=== PATIENT | female | born 1990 | race Caucasian/White ===

== ENCOUNTER 2017-03-24 11:15 | Emergency (ER) | payer BC ==
[2017-03-24 12:17] VITALS: BP 102/64
--- NOTE | 2017-03-24 12:36 | UC ---
Throat Pain/Nasal Efren HPI - HPI Summary HPI Summary: Patient has had sinus pressure, cough, and throat pain for the past 1-2 weeks - History of Current Complaint Chief Complaint: UCRespiratory Stated Complaint: COUGH & FEVER X 2 WEEKS Time Seen by Provider: 03/24/17 12:27 Hx Obtained From: Patient Hx Last Menstrual Period: n/a ?: No Onset/Duration: Sudden Onset Severity: Severe Cough: Nonproductive Associated Signs & Symptoms: Positive: Dysphagia, Sinus Discomfort, Fever - Allergies/Home Medications Allergies/Adverse Reactions: Allergies Allergy/AdvReac Type Severity Reaction Status Date / Time fiber glass Allergy Blisters Uncoded 03/24/17 12:17 Home Medications: Home Medications Acetaminophen [Eq Pain Reliever] 1,000 mg PO Q6H PRN 03/24/17 [History Confirmed 03/24/17] Day And Night Cold Severe 2 units PO SEE INSTRUCTIONS PRN 03/24/17 [History Confirmed 03/24/17] Ibuprofen-Diphenhydramine HCl [Ibuprofen Pm 200-25 mg] 1 cap PO BEDTIME [History Confirmed 03/24/17] Levonorgestrel (Iud) [Mirena IUD] 20 mcg IU DAILY 03/24/17 [History Confirmed ] PMH/Surg Hx/FS Hx/Imm Hx Previously Healthy: Yes - Surgical History Surgical History: Yes Surgery Procedure, Year, and Place: wisdom tooth, left bicep tumor - Family History Known Family History: Negative: Hypertension - Social History Alcohol Use: Occasionally Substance Use Type: None Smoking Status (MU): Current Some Day Smoker Review of Systems Constitutional: Fever, Fatigue Skin: Negative Eyes: Negative ENT: Sore Throat, Ear Ache, Nasal Discharge, Sinus Congestion Respiratory: Cough Cardiovascular: Negative Gastrointestinal: Negative Genitourinary: Negative Motor: Negative Neurovascular: Negative Musculoskeletal: Negative Neurological: Headache Psychological: Negative Is Patient Immunocompromised?: No All Other Systems Reviewed And Are Negative: Yes Physical Exam Triage Information Reviewed: Yes Appearance: Well-Nourished, Ill-Appearing, Pain Distress Vital Signs: Initial Vital Signs Temp 98.8 F 03/24/17 12:12 Pulse 80 03/24/17 12:12 Resp 18 03/24/17 12:12 BP 102/64 03/24/17 12:12 Pulse Ox 99 03/24/17 12:12 Vital Signs Reviewed: Yes Eye Exam: Normal ENT: Positive: Hearing grossly normal, Pharyngeal erythema, Nasal congestion, TM red Dental Exam: Normal Neck exam: Normal Neck: Positive: Supple, Nontender, No Lymphadenopathy Respiratory Exam: Normal Respiratory: Positive: Chest non-tender, Lungs clear, Normal breath sounds Cardiovascular Exam: Normal Cardiovascular: Positive: RRR, No Murmur, Pulses Normal Abdominal Exam: Normal Bowel Sounds: Positive: Present Musculoskeletal Exam: Normal Musculoskeletal: Positive: Strength Intact, ROM Intact, No Edema Neurological Exam: Normal Neurological: Positive: Alert, Muscle Tone Normal Psychological Exam: Normal Skin Exam: Normal Throat Pain/Nasal Course/Dx - Course Course Of Treatment: hx obtained, exam performed ,meds reviewed, treated for sinusitis - Differential Dx/Diagnosis Differential Diagnosis/HQI/PQRI: Otitis Media, Pharyngitis, Sinusitis, URI Provider Diagnoses: sinusitis Discharge - Discharge Plan Condition: Stable Disposition: HOME Prescriptions: Amoxicillin PO (*) [Amoxicillin 875 MG (*)] 875 mg PO BID #20 tab Patient Education Materials: Sinusitis (ED) Additional Instructions: 1, increase fluid intake and get plenty of rest 2. Take the antibioitc as prescribed. 3. Follow up with any worsening symptoms
== END 2017-03-24 12:53 | disposition home or self-care (01) ==
LOC: UCCORT 11:15
DX: J32.9 Chronic sinusitis, unspecified (principal); Z72.0 Tobacco use
CPT/HCPCS: 99202; G0463

== ENCOUNTER 2017-05-02 06:07 | Day surgery (SDC) | payer BC ==
[~2017-05-02 06:07] MED LIST: Buffered Lidocaine 0.9% SYRIN* 5 ML/SYR SYRINGE INTRADERM ONE; Ibuprofen TAB* 600 MG PO ONE; Metoclopramide TAB* 10 MG PO ONE; Sodium Citrate/Citric Acid* 15 ML UDC PO ONE
[2017-05-02] MEDS ORDERED: Metoclopramide TAB* 10 MG ONE (06:43)
[2017-05-02] MEDS ORDERED: Sodium Citrate/Citric Acid* 15 ML UDC ONE (06:43)
[2017-05-02] MEDS ORDERED: Buffered Lidocaine 0.9% SYRIN* 5 ML/SYR SYRINGE ONE (06:43)
[2017-05-02] MEDS ORDERED: ceFAZolin 2 GM PREMIX (*) 2 GM/50 ML BAG IVPB ONE (06:43)
[2017-05-02] MEDS ORDERED: Ketorolac INJ* 30 MG/ML 1 ML VIAL ONE (06:49)
[2017-05-02] MEDS ORDERED: Bupivacaine 0.25% SDV* 30 ML ONE (07:15)
[2017-05-02] MEDS ORDERED: Atracurium* 10 MG/ML 10 ML VIAL ONE (07:47)
[2017-05-02] MEDS ORDERED: fentaNYL* 50 MCG/ML 2 ML VIAL (100 MCG VIAL) ONE ×2 (07:47→08:20)
[2017-05-02] MEDS ORDERED: Dexamethasone IV* 4 MG/ML 1 ML (4 MG) ONE (07:48)
[2017-05-02] MEDS ORDERED: Ondansetron INJ* 2 MG/ML VIAL ONE (07:48)
[2017-05-02] MEDS ORDERED: Propofol* 10 MG/ML 20 ML BTL IV PUSH ONE (07:48)
[2017-05-02] MEDS ORDERED: Lidocaine 2% PF * 5 ML VIAL ONE (07:48)
[2017-05-02] MEDS ORDERED: Scopolamine 1.5 mg* PATCH ONE (07:48)
[2017-05-02] MEDS ORDERED: fentaNYL* 50 MCG/ML 2 ML VIAL (100 MCG VIAL) IV PRN (08:24)
[2017-05-02] MEDS ORDERED: DiMENhydriNATE IV* 50 MG/ML VIAL IV PUSH PRN (08:24)
[2017-05-02] MEDS ORDERED: oxyCODONE/Acetamin 5/325 MG* TAB PO PRN (08:24)
[2017-05-02] MEDS ORDERED: Atropine 1MG/ML INJ* 1 ML VIAL ONE (08:33)
[2017-05-02] MEDS ORDERED: Edrophonium Chloride* 10 MG/ML 15 ML VIAL ONE (08:36)
--- NOTE | 2017-05-02 08:43 | BRIEFOPN ---
Brief Operative Note - Surgery Procedures: Preop Dx: possible Spigelian hernia Postop Dx: normal diagnostic laparoscopy Procedure: diagnostic laparoscopy Anesthesia: GET Surgeon: Karolina Asst: LC aTlavera Fluids: 900 ml EBL: none Specimen: none Drains: none Findings: dictated
[2017-05-02] MEDS ORDERED: HYDROcodone/ACETAMIN 5-325 MG* 1 TAB ONE (09:29)
[2017-05-02 10:01] VITALS: BP 109/60
--- NOTE | 2017-05-02 13:41 | OP ---
CC: Dr. Carly Rios * DATE OF OPERATION: 05/02/17 - [facility] DATE OF : 89 SURGEON: Akira Turcios MD DISTRICT MEDICAL EXAMINER: LC Lott ANESTHESIOLOGIST: Dr. Alonzo ANESTHESIA: General anesthetic, local infiltration. PRE-OP DIAGNOSIS: Spigelian hernia. POST-OP DIAGNOSIS: Left adnexal cyst. OPERATIVE PROCEDURE: Diagnostic laparoscopy. DESCRIPTION OF PROCEDURE: The patient was supine on the operative table. After adequate general anesthetic, compression stockings, Keegan Hugger warmer and intravenous antibiotics, the abdomen was prepped with antiseptic and draped in a sterile fashion. Local infiltrative anesthesia was administered. A small umbical incision was created, blunt port cannula was placed. Insufflation was carried out with carbon dioxide. A 5 mm suprapubic cannula was also placed. Inspection did not reveal any evidence of Spigelian hernia nor inguinal hernia nor any other ventral hernia. The abdomen was palpated and examined and no laxity could be identified. Examination of the pelvic organs revealed normal uterus. Right tube and ovary were normal. Left side had approximately 1.5 cm cyst on the ovary which appeared physiologic. There was 1 cm cyst on the fallopian tube, which was on a pedicle, but this was easily drained. Pictures were taken. The intestine appeared normal and the large incision was closed with 0 Vicryl and then 5-0 Vicryl for the skin in both cases, followed by Steri- Strips. She tolerated the procedure well, was awakened and brought to Recovery in good condition. No complications. No drains. No pathologic specimens. Estimated blood loss was less than 10 mL. [id number]/[facility] #: [id number] [facility]
[2017-05-05] MEDS ORDERED: Scopolamine PATCH Remove* 1 NOTE MISC PATCH OFF ONE (08:25)
== END 2017-05-02 10:20 | disposition home or self-care (01) ==
LOC: OR 06:07
PROVIDERS: ATTEND Surgery
DX: N83.8 Other noninflammatory disorders of ovary, fallopian tube and broad ligament (principal); N83.202 Unspecified ovarian cyst, left side; R10.9 Unspecified abdominal pain; F17.210 Nicotine dependence, cigarettes, uncomplicated
CPT/HCPCS: 81025; A9270-GY; J0461; J0690; J1100; J1885; J2405; J2704; J3010

== ENCOUNTER 2017-06-26 14:50 | Emergency (ER) | payer BC ==
[2017-06-26 15:57] VITALS: BP 115/59
--- NOTE | 2017-06-26 17:01 | UC ---
FLU HPI - HPI Summary HPI Summary: Pt presents with sore throat, body aches and fever since this am. Pt has taken Dayquil and APAP with improvement of fever. last dose 13:30. No rash no drooling. no cough. 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 Pt sent for eval from employer Pt without rash + fatigue Pt's medications reviewed this visit - History of Current Complaint Chief Complaint: UCGeneralIllness Stated Complaint: FLU SX'S Time Seen by Provider: 06/26/17 16:47 Hx Obtained From: Patient Hx Last Menstrual Period: n/a ?: No - merena Onset/Duration: Gradual Onset Severity Currently: Mild Severity Initially: Moderate Pain Intensity: 4 Pain Scale Used: 0-10 Numeric Associated Signs & Symptoms: Positive: Fever, T Max - 101, Myalgia, Sore Throat , Nasal Congestion, Headache Related Hx: Possible Flu/Infectious Exposure - Allergy/Home Medications Allergies/Adverse Reactions: Allergies Allergy/AdvReac Type Severity Reaction Status Date / Time fiber glass Allergy Blisters Uncoded 06/26/17 15:57 PMH/Surg Hx/FS Hx/Imm Hx Previously Healthy: Yes - Surgical History Surgical History: None Surgery Procedure, Year, and Place: pt never had surgery - Family History Known Family History: Negative: Hypertension, Diabetes - Social History Occupation: Employed Full-time - RN Lives: With Family Alcohol Use: Weekly Alcohol Amount: 2 glasses wine per week Substance Use Type: None Smoking Status (MU): Light Every Day Tobacco Smoker Amount Used/How Often: reports has maybe 1 cig per week Review of Systems Constitutional: Fever Skin: Negative ENT: Sore Throat, Nasal Discharge, Sinus Congestion All Other Systems Reviewed And Are Negative: Yes Physical Exam Triage Information Reviewed: Yes Appearance: Well-Appearing, No Pain Distress, Well-Nourished Vital Signs: Initial Vital Signs Temp 98.9 F 06/26/17 15:52 Pulse 71 06/26/17 15:52 Resp 16 06/26/17 15:52 BP 115/59 06/26/17 15:52 Pulse Ox 100 06/26/17 15:52 Vital Signs Reviewed: Yes Eye Exam: Normal Eyes: Positive: Conjunctiva Clear ENT: Positive: Pharynx normal, Nasal congestion, TMs normal, Other - TM x 2 clear no fluid turbinates inflammed and boggy + PND mild erythema oropharynx no exudate, no erythema Dental Exam: Normal Neck exam: Normal Neck: Positive: Supple, Nontender, No Lymphadenopathy Respiratory Exam: Normal Respiratory: Positive: Chest non-tender, Lungs clear, Normal breath sounds, No respiratory distress, No accessory muscle use, Other: - intermittent cough Cardiovascular Exam: Normal Cardiovascular: Positive: RRR, No Murmur, Pulses Normal Abdominal Exam: Normal Abdomen Description: Positive: Nontender, No Organomegaly, Soft Bowel Sounds: Positive: Present Musculoskeletal Exam: Normal Musculoskeletal: Positive: Strength Intact, ROM Intact Neurological Exam: Normal Neurological: Positive: Alert Psychological Exam: Normal Psychological: Positive: Normal Response To Family Skin Exam: Normal Flu Course/Dx - Course Course Of Treatment: pt with body aches, sore throat and fever today. pt works in healthcare with flu exposure. non toxic appearing. neg strep, neg flu. Rx tamiflu prophylaxis. secretion precaution. motrin/apap. hydrate. rest. return precautions. work note - Differential Dx/Diagnosis Provider Diagnoses: viral syndrome Discharge - Discharge Plan Condition: Stable Disposition: HOME Prescriptions: Oseltamivir Phosphate [Tamiflu] 75 mg PO DAILY #10 capsule Patient Education Materials: Viral Syndrome (ED) Forms: *Gen. Provider Communication, *Work Release Referrals: Carly Rios MD [Primary Care Provider] - Additional Instructions: - Stay well hydrated. Drink plenty of non-alcoholic, non-caffinated beverages. - Alternate ibuprofen (Advil, Motrin) 600mg and Tylenol every 3 hours for pain or fever. Take with food. Do NOT take for more than 4-5 days. - These infections are spread by secretions - do NOT share eating or drinking utensils - clean items you share with other people such as cell phones, computer mouse, TV remote, computer tablets, etc. After you have taken Tamiflu for 3 days, change your toothbrush and your pillowcase. - the doctor is treating your a viral syndrome You are being placed on tamiflu prophylaxis because of your flu exposure - You should not return to work until you have been fever free without Tylenol or Motrin for the period of 24 hours hours - get plenty of restful sleep - humidify the air in the room where you sleep - boil water, run a hot steam shower, vaporizer, cups of water by heat register - okay to take over the counter decongestant and cough medication - contact your doctor, return here, or go to the emergency department with questions or concerns
== END 2017-06-26 17:13 | disposition home or self-care (01) ==
LOC: UCCORT 14:50
DX: B34.9 Viral infection, unspecified (principal); F17.210 Nicotine dependence, cigarettes, uncomplicated
CPT/HCPCS: 87502; 87651; 99212; G0463

== ENCOUNTER 2018-03-06 21:09 | Emergency (ER) | payer BC ==
[2018-03-06 21:39] VITALS: BP 123/70
[2018-03-06] MEDS ORDERED: Phenazopyridine TAB* 100 MG PO ONE (21:43)
[2018-03-06] MEDS ORDERED: Cephalexin CAP* 500 MG PO ONE (21:44)
--- NOTE | 2018-03-06 21:59 | UC ---
Complaint Female HPI - HPI Summary HPI Summary: Pt c/o sudden on set of urinary urgency, frequency and dysuria that began to day. - History Of Current Complaint Chief Complaint: UCGU Stated Complaint: URINARY Time Seen by Provider: 03/06/18 21:43 Hx Obtained From: Patient Hx Last Menstrual Period: 02/20/18 ?: No Onset/Duration: Sudden Onset, Lasting Hours Timing: Constant Severity Initially: Mild Severity Currently: Moderate Pain Intensity: 5 Character: Dull, Burning Aggravating Factor(s): Urination Associated Signs And Symptoms: Positive: Negative - Risk Factors Ectopic Risk Factor: Negative Ovarian Torsion Risk Factor: Reproductive Age - Allergies/Home Medications Allergies/Adverse Reactions: Allergies Allergy/AdvReac Type Severity Reaction Status Date / Time fiber glass Allergy Blisters Uncoded 03/06/18 21:39 Home Medications: Home Medications Desogestrel-Ethinyl Estradiol [ 28 Day Tablet] 1 tab PO DAILY 03/06/18 [ History Confirmed 03/06/18] PMH/Surg Hx/FS Hx/Imm Hx Previously Healthy: Yes - Surgical History Surgical History: None Surgery Procedure, Year, and Place: pt never had surgery - Family History Known Family History: Negative: Hypertension, Diabetes - Social History Occupation: Employed Full-time Lives: With Family Alcohol Use: Weekly Alcohol Amount: 2 glasses wine per week Substance Use Type: None Smoking Status (MU): Light Every Day Tobacco Smoker Type: Cigarettes Amount Used/How Often: reports has maybe 1 cig per week Have You Smoked in the Last Year: Yes Review of Systems Constitutional: Negative Skin: Negative Eyes: Negative ENT: Negative Respiratory: Negative Cardiovascular: Negative Gastrointestinal: Negative Genitourinary: Dysuria, Hematuria, Frequency, Urgency Motor: Negative Neurovascular: Negative Musculoskeletal: Negative Neurological: Negative Psychological: Negative Is Patient Immunocompromised?: No All Other Systems Reviewed And Are Negative: Yes Physical Exam Triage Information Reviewed: Yes Appearance: Well-Appearing Vital Signs: Initial Vital Signs Temp 99.1 F 03/06/18 21:33 Pulse 98 03/06/18 21:33 Resp 18 03/06/18 21:33 BP 123/70 03/06/18 21:33 Pulse Ox 99 03/06/18 21:33 Vital Signs Reviewed: Yes Eye Exam: Normal ENT Exam: Normal ENT: Positive: Hearing grossly normal Dental Exam: Normal Neck exam: Normal Respiratory Exam: Normal Respiratory: Positive: Normal breath sounds Cardiovascular Exam: Normal Abdomen Description: Positive: Other: - suprapubic discomfort Musculoskeletal Exam: Normal Neurological Exam: Normal Psychological Exam: Normal Skin Exam: Normal Complaint Female Dx - Differential Dx/Diagnosis Differential Diagnosis/HQI/PQRI: Urinary Tract Infection Provider Diagnoses: UTI Discharge - Sign-Out/Discharge Documenting (check all that apply): Patient Departure All imaging exams completed and their final reports reviewed: No Studies - Discharge Plan Condition: Stable Disposition: HOME Prescriptions: Cephalexin CAP* [Keflex 500 CAP*] 500 mg PO Q8H #21 cap Phenazopyridine TAB* [Pyridium 100 mg TAB*] 100 mg PO Q8H #3 tab Patient Education Materials: Urinary Tract Infection in Women (ED) Referrals: Alka Law NP [Primary Care Provider] - If Needed - Billing Disposition and Condition Condition: STABLE Disposition: Home
== END 2018-03-06 21:57 | disposition home or self-care (01) ==
LOC: UCCORT 21:09
DX: N39.0 Urinary tract infection, site not specified (principal); F17.210 Nicotine dependence, cigarettes, uncomplicated
CPT/HCPCS: 81003; 87086; 99212; A9270-GY; G0463

== ENCOUNTER 2018-04-10 16:53 | Emergency (ER) | payer BC ==
[2018-04-10 17:40] VITALS: BP 127/76
--- NOTE | 2018-04-10 19:08 | UC ---
Throat Pain/Nasal Efren HPI - HPI Summary HPI Summary: malaise x 4 days, with onset yesterday of fever up to 101.5. Has tightness in the substernal area, non productive cough, and has been using albuterol inhaler with some relief. Son has strep, but she is strep negative. 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 No nausea, vomiting, decreased appetite. Has had flu vaccine. - History of Current Complaint Chief Complaint: UCGeneralIllness Stated Complaint: COUGH/CONGESTION/FEVER Time Seen by Provider: 04/10/18 17:44 Hx Obtained From: Patient Hx Last Menstrual Period: 02/20/18 ?: No Onset/Duration: Gradual Onset, Lasting Days - 4 Pain Intensity: 3 Cough: Nonproductive - Epiglottits Risk Factors Epiglottis Risk Factors: Negative - Allergies/Home Medications Allergies/Adverse Reactions: Allergies Allergy/AdvReac Type Severity Reaction Status Date / Time fiber glass Allergy Blisters Uncoded 03/06/18 21:39 Home Medications: Home Medications Albuterol HFA INHALER* [Ventolin HFA Inhaler*] 2 puff INH Q6H 04/10/18 [History Confirmed 04/10/18] Cpm/PE/Dm/Acetaminophen/Guaifn [Tylenol Cold-Flu Day-Nt Caplet] 1 each PO Q8H [History Confirmed 04/10/18] PMH/Surg Hx/FS Hx/Imm Hx Previously Healthy: Yes - Surgical History Surgical History: Yes Surgery Procedure, Year, and Place: LAPRASCOPIC CYSTECTOMY - Family History Known Family History: Positive: Respiratory Disease - mother has asthma Negative: Hypertension, Diabetes - Social History Occupation: Employed Full-time Lives: With Family Alcohol Use: Weekly Alcohol Amount: 2 glasses wine per week Substance Use Type: None Smoking Status (MU): Light Every Day Tobacco Smoker Type: Cigarettes Amount Used/How Often: reports has maybe 1 cig per week Have You Smoked in the Last Year: Yes Review of Systems All Other Systems Reviewed And Are Negative: Yes Constitutional: Positive: Fever, Fatigue Skin: Positive: Negative Eyes: Positive: Negative ENT: Positive: Sore Throat Respiratory: Positive: Shortness Of Breath, Cough Cardiovascular: Positive: Negative Gastrointestinal: Positive: Negative Genitourinary: Positive: Negative Motor: Positive: Negative Neurovascular: Positive: Negative Musculoskeletal: Positive: Negative Neurological: Positive: Negative Psychological: Positive: Negative Is Patient Immunocompromised?: No Physical Exam Triage Information Reviewed: Yes Appearance: Ill-Appearing - looks fatigued and flushed. Vital Signs: Initial Vital Signs Temp 98.6 F 04/10/18 17:38 Pulse 74 04/10/18 17:38 Resp 16 04/10/18 17:38 BP 127/76 04/10/18 17:38 Pulse Ox 99 04/10/18 17:38 Eyes: Positive: Conjunctiva Clear ENT: Positive: Pharyngeal erythema. Negative: Tonsillar swelling, Tonsillar exudate Dental Exam: Normal Neck: Positive: Supple, Nontender, No Lymphadenopathy Respiratory: Positive: Lungs clear, Normal breath sounds Cardiovascular: Positive: RRR, No Murmur Abdomen Description: Positive: Nontender, No Organomegaly, Soft Musculoskeletal Exam: Normal Neurological Exam: Normal Neurological: Positive: Alert Psychological Exam: Normal Skin Exam: Normal Diagnostics - Laboratory Diagnostic Studies Completed/Ordered: rapid strep negative. Throat Pain/Nasal Course/Dx - Course Course Of Treatment: prednisone for relief of dyspnea; rest, fluids. - Differential Dx/Diagnosis Differential Diagnosis/HQI/PQRI: Laryngitis, Pharyngitis, Tonsillitis, Other - bronchitis Provider Diagnosis: Viral syndrome Discharge - Sign-Out/Discharge Documenting (check all that apply): Patient Departure All imaging exams completed and their final reports reviewed: No Studies - Discharge Plan Condition: Stable Disposition: HOME Prescriptions: predniSONE TAB* [Deltasone 20 MG TAB*] 2 tab PO DAILY #8 tab Patient Education Materials: Viral Syndrome (ED) Referrals: Alka Law NP [Primary Care Provider] - Additional Instructions: Begin prednisone 40mg once daily for 5 days to relieve wheeze and chest tightness. Continue ibuprofen and use of albuterol as needed. Folllow up if you develop increasing chest pain or shortness of breath. - Billing Disposition and Condition Condition: STABLE Disposition: Home
[2018-04-10] MEDS ORDERED: predniSONE TAB* 20 MG PO ONE (19:10)
== END 2018-04-10 19:24 | disposition home or self-care (01) ==
LOC: UCCORT 16:53
DX: B34.9 Viral infection, unspecified (principal); F17.210 Nicotine dependence, cigarettes, uncomplicated
CPT/HCPCS: 87651; 99212; G0463; J7512